=== PATIENT | female | born 1985 | race Native Hawaiian/Other Pacific Islander ===

== ENCOUNTER 2018-05-30 09:48 | Emergency (ER) | payer OTHER ==
[~2018-05-30] VITALS: Ht 152.4 cm; Wt 79.4 kg
[~2018-05-30 09:48] MED LIST: ZOLOFT25 MG PO
[2018-05-30 09:55] VITALS: TEMP 98.1
[2018-05-30 11:22] VITALS: BP 120/72
== END 2018-05-30 11:22 | disposition home or self-care (01) ==
LOC: ED 09:48
DX: S30.0XXA Contusion of lower back and pelvis, initial encounter (principal); S33.5XXA Sprain of ligaments of lumbar spine, initial encounter; Y04.2XXA Assault by strike against or bumped into by another person, initial encounter; Y92.89 Other specified places as the place of occurrence of the external cause
CPT/HCPCS: 81000; 81025; 96372; 99283; J1885